=== PATIENT | female | born 1940 | race Caucasian/White ===

== ENCOUNTER 2021-02-14 11:41 | Outpatient (CLI) | payer MEDICARE, SELFPAY | END 2021-02-14 11:42 | disposition home or self-care (01) | LOC: CHSIMG 11:45 | PROVIDERS: PCP Family Medicine; Visit Provider Family Medicine | DX: I10 Essential (primary) hypertension (principal) | CPT/HCPCS: 93306 ==

== ENCOUNTER 2021-02-28 11:12 | Outpatient (CLI) | payer MEDICARE, SELFPAY ==
[2021-02-28 12:56] LABS: SARS-CoV-2 RNA PCR Negative (Negative)
== END 2021-02-28 11:13 | disposition home or self-care (01) ==
LOC: CHSLAB 11:18
PROVIDERS: PCP Family Medicine; Visit Provider Family Medicine
DX: J00 Acute nasopharyngitis [common cold] (principal); Z20.822 Contact with and (suspected) exposure to COVID-19
CPT/HCPCS: C9803; U0003; U0005

== ENCOUNTER 2021-04-25 23:20 | Emergency (ER) | payer MEDICARE, SELFPAY ==
--- NOTE | ~2021-04-25 | CT_ITS ---
EXAMINATION: CT brain wo con DATE: 04/26/2021 00:47 INDICATION: Posterior headache. Uncontrollable tremors. TECHNIQUE: Computed tomography (CT) of the head was performed without intravenous contrast. The dose- length product was 908.00 mGy-cm. Automated exposure control and iterative reconstruction technique w ere employed. COMPARISON: None FINDINGS: Generalized atrophy. There are scattered mild periventricular and subcortical white matter changes, most likely related to small vessel ischemic disease (microangiopathy). No ventriculomegaly or midline shift. Basilar cisterns are patent. Paranasal sinuses and mastoids are pneumatized. Chroni c right sphenoid sinus disease. No depressed skull fractures. No acute intracranial hemorrhage, infar ction, mass or mass effect. IMPRESSION: 1. No acute intracranial abnormality. 2: Chronic age-related findings. Reviewed, dictated and finalized at location A.
--- NOTE | ~2021-04-25 | CT_ITS ---
EXAMINATION: CT diagnostic chest wo con DATE: 04/26/2021 00:48 INDICATION: Shortness of breath TECHNIQUE: Computed tomography (CT) of the chest was performed without intravenous contrast. The dose -length product was 143.60 mGy-cm. Automated exposure control and iterative reconstruction technique were employed. COMPARISON: None FINDINGS: No significant pleural or pericardial effusion. There are calcified granulomas of the splee n. There are gallstones. There is a 4.5 cm left renal cyst. No thoracic lymphadenopathy. There is a l eft-sided chest pain or. There are patchy bilateral interstitial infiltrates with tree-in-bud configu ration, most likely infectious. No pneumothorax. No endobronchial lesions. No acute osseous abnormali ty. There is thoracic spondylosis. IMPRESSION: 1. Patchy bilateral interstitial infiltrates with areas of tree-in-bud nodularity, pneumonia versus b ronchiolitis. 2: Cholelithiasis. Reviewed, dictated and finalized at location A. IMPRESSION: 1. Patchy bilateral interstitial infiltrates with areas of tree-in-bud nodulari ty, pneumonia versus bronchiolitis. 2: Cholelithiasis.
[2021-04-25 23:20] VITALS: BP 159/86; PULSE 93; RESP 20; TEMP 36.6; O2SAT 97
--- NOTE | 2021-04-25 23:37 | ECG_ITS ---
Measurements Intervals [place] Rate: 62 P: 43 ID: [id number] QRS: 40 QRSD: 75 T: 10 QT: 422 QTc: 431 Interpretive Statements ELECTRONIC ATRIAL PACEMAKER WITH INHIBITION LOW QRS VOLTAGE IN DIFFUSE LEADS BASELINE ARTIFACT- III BORDERLINE ECG Electronically Signed On 04-26-2021 6:23:52 CDT by Raj Claros D.O.
--- NOTE | 2021-04-25 23:49 | ED.GENADULT ---
HPI - General Adult General Chief complaint: Unspecified Stated complaint: General Sickness Time Seen by Provider: 04/25/21 23:22 Source: patient, EMS and RN notes reviewed Mode of arrival: EMS Limitations: no limitations History of Present Illness complaint: Mild persistent SOB x 2 days + right leg tremors x 2 nights. Onset (ago): day(s) (2) Location: chest and lower extremity Radiation: non-radiation Severity: mild Severity scale (1-10): 5 Quality: other (Pt was pain-free in the ED) Pain Consistency: constant Relieving factors: none Exacerbating factors: none Treatments prior to arrival: none Related Data Home Medications Medication Instructions Recorded Confirmed levothyroxine 75 mcg PO DAILY 04/25/21 04/25/21 losartan 100 mg PO DAILY 04/25/21 04/25/21 Allergies Allergy/AdvReac Type Severity Reaction Status Date / Time No Known Allergies Allergy Verified 04/25/21 23:53 Review of Systems Review of Systems: All systems reviewed & are unremarkable except as noted in HPI and below Constitutional: Constitutional: Reports as per HPI and Reports no additional constitutional complaints Eyes: Eyes: Reports as per HPI and Reports no additional eye complaints ENT: Reports system reviewed and no additional complaints, except as documented and Reports as per HPI Cardiovascular: Cardiovascular: Reports as per HPI and Reports no additional cardiovascular complaints Respiratory: Respiratory: Reports as per HPI and Reports no additional respiratory complaints Gastrointestinal: Gastrointestinal: Reports as per HPI and Reports no additional gastrointestinal complaints Genitourinary: Genitourinary: Reports no additional female genitourinary complaints and Reports as per HPI Musculoskeletal: Musculoskeletal: Reports no additional musculoskeletal complaints and Reports as per HPI Integumentary/Breasts: Skin/Breast: Reports system reviewed and no additional complaints, except as docu and Reports as per HPI Neurologic: Reports system reviewed and no additional complaints, except as documented and Reports as per HPI Psychiatric: Psychiatric: Reports no additional psychiatric complaints and Reports as per HPI Endocrine: Endocrine: Reports no additional endocrine complaints and Reports as per HPI Hematologic/Lymphatic: Hematologic/Lymphatic: Reports no additional hematologic/lymphatic complaints and Reports as per HPI Allergic/Immunologic: Allergic/Immunologic: Reports no additional allergic/immunologic complaints and Reports as per HPI PMFSH Past Medical History Medical History Restless leg syndrome Exam Const: General: cooperative, healthy appearing, no acute distress and well developed Nutritional Appearance: obese Orientation/consciousness: patient oriented x3 Limitations: no limitations HENMT: Head: normal to inspection, normocephalic and atraumatic Ears: hearing grossly normal bilaterally, external ears normal and TM's normal bilaterally General nose exam: Normal external nose present and Normal nares present Face and sinus: normal facial exam Mouth: Yes Normal oral and palatal mucosa present Teeth and gingiva: dentition normal Throat: posterior oropharynx normal Eyes: General: appearance normal, both eyes and all related structures Conjunctivae: conjunctivae normal Sclera: sclerae normal Cornea: corneas normal Pupils: Equal, round and reactive pupils present EOM: EOMs intact bilaterally Neck: Neck: normal visual inspection and full ROM Chest: Chest palpation & inspection: normal inspection of the chest Resp: Effort & Inspection: normal respiratory effort Auscultation: clear to auscultation bilaterally Cardio: Jugular venous distension: no JVD Rate: regular rate Rhythm: regular rhythm Heart sounds: S1 normal heart sound present and S2 normal heart sound present GI: Inspection: normal to inspection Percussion: Yes normal to percussion
[2021-04-25] MEDS: SODIUM CHLORIDE 0.9% IV 500 ML 999 ML IV CONT (23:54)
[2021-04-25] MEDS: methylPREDNISolone SOD SUCC 125 MG VIAL IV PUSH (23:55)
[2021-04-25] MEDS: ALBUTEROL SULFATE (*SP) INHALER 2 PUFF INHALATION (23:55)
[2021-04-26 00:04] LABS: Base Excess ABG 4.9 mmol/L (0-2); Oxygen Content ABG 18.2 %vol (16.0-22.0); Oxygen Saturation ABG 93.6 % (95-97); Oxyhemoglobin 93.2 % (94-100); PCO2 ABG 40.9 mmHg (35-45); PO2 ABG 64.6 mmHg (75-85); Total Hemoglobin 13.9 g/dL; pH ABG 7.47 (7.35-7.45)
[2021-04-26 00:05] LABS: Basophils Absolute Auto 0.05 K/mm3 (0.00-0.10); Basophils Percent Auto 0.8 % (0.0-1.0); Device ROOM AIR; Eosinophils Absolute Auto 0.18 K/mm3 (0.02-0.50); Eosinophils Percent Auto 2.9 % (1.0-6.0); Hematocrit 41.3 % (35.0-42.0); Hemoglobin 13.3 g/dL (11.7-13.8); Immature Granulocyte Absolute 0.03 K/mm3 (0.00-0.00); Immature Granulocyte Percent A 0.5 % (0.0-0.0); Lymphocytes Absolute Auto 2.11 K/mm3 (1.10-4.50); Lymphocytes Percent Auto 34.5 % (18.0-42.0); Mean Corpuscular HGB Conc 32.2 g/dL (32.0-36.0); Mean Corpuscular Hemoglobin 27.8 pg (27.0-31.0); Mean Corpuscular Volume 86.4 fL (78.0-102.0); Mean Platelet Volume 9.3 fl (9.2-11.8); Modified Allen's Test Pass; Monocytes Absolute Auto 0.47 K/mm3 (0.10-0.90); Monocytes Percent Auto 7.7 % (2.0-11.0); Neutrophils Absolute Auto 3.3 K/mm3 (1.7-7.2); Neutrophils Percent Auto 53.6 % (50.0-70.0); Platelet Count Result 239 K/mm3 (150-420); Red Blood Count 4.78 M/mm3 (4.20-5.40); Red Cell Distribution Width 13.4 % (11.6-14.4); Site Drawn RIGHT RADIAL; White Blood Count 6.1 K/mm3 (4.8-10.8)
[2021-04-26 00:12] LABS: Chloride 103 mmol/L (98-108); Potassium 3.8 mmol/L (3.5-5.1); Sodium 143 mmol/L (136-145)
[2021-04-26 00:41] LABS: Appearance Urine Sl Cloudy (Clear); Bilirubin Urine Negative (Negative); Color Urine Light Yellow (Yellow); Glucose Urine UA Negative (Negative); Ketones Urine Negative (Negative); Leukocyte Esterase Ur 1+ (Negative); Nitrate Urine Negative (Negative); Protein Urine Negative (Negative); Urobilinogen Urine 0.2 mg/dL (0.2-1.0); pH Urine 7.5 (5.0-8.0)
[2021-04-26 00:44] LABS: Alanine Aminotransferase 14 U/L (14-59); Albumin Level 3.4 g/dL (3.4-5.0); Alkaline Phosphatase 54 U/L (46-116); Anion Gap 12 mmol/L (8-16); Aspartate Amino Transferase 15 U/L (15-37); Bilirubin,Total 0.5 mg/dL (0.00-1.00); Blood Urea Nitrogen 18 mg/dL (7-18); Calcium 9.1 mg/dL (8.5-10.1); Carbon Dioxide 28 mmol/L (21-32); Estimated CRCL calculation 21 ml/min; Estimated Glomerular Filt Rate 32; Glucose 98 mg/dL (70-99); Osmolality Calculated 297 mOsm/kg (285-295); Total Protein 6.7 g/dL (6.4-8.2)
[2021-04-26 00:45] VITALS: PULSE 93; RESP 20; O2SAT 98
[2021-04-26 00:47] LABS: Add Urine Microscopic? YES; Bacteria Urine Trace /hpf; Blood Urine Trace (Negative); RBC Urine 0-2 /hpf (0-2); Squamous Epithelial Cell Urine Few /hpf (Few)
[2021-04-26 00:47] LABS: Ethanol < 3 mg/dL (0-6); Lactic Acid Reflex 0.9 mmol/L (0.4-2.0); Troponin I < 4.0 ng/L (0.00-60.4)
[2021-04-26 00:49] VITALS: BP 163/87; PULSE 89; RESP 20; O2SAT 97
--- NOTE | 2021-04-26 00:53 | PC.NURSE ---
PT RETURNS FROM CT ROOM. TO BATHROOM FOR UA SPECIMEN. PT STATES HAS HAD SORE TO LABIA FOR EXTENDED PERIOD OF TIME WITH NO HEALING WITH OTC MEDICATIONS. NOTED REDNESS AND EXCORIATION TO LEFT INNER LABIA. AREA CLEANSED AND 2X2 GAUZE APPLIED BETWEEN LABIA FOLDS. ERP NOTIFIED
[2021-04-26 00:54] LABS: Amphetamine Screen Urine Negative (Negative); Barbiturate Screen Urine Negative (Negative); Benzodiazepines Screen Urine Negative (Negative); Cannabinoid Screen Urine Negative (Negative); Cocaine Screen Urine Negative (Negative); Methadone Screen Urine Negative (Negative); Opiate Screen Urine Positive (Negative); Phencyclidine Screen Urine Negative (Negative)
[2021-04-26 01:01] LABS: SARS-CoV-2 Ag Negative (Negative)
--- NOTE | 2021-04-26 01:24 | PC.NURSE ---
PT SLEEPING, NO TREMOR TO RIGHT LEG NOTED. NO RESP DISTRESS. RESP EVEN AND UNLABORED . ERP UPDATED
[2021-04-26 02:07] VITALS: BP 134/65; PULSE 68; RESP 20; TEMP 37.2; O2SAT 97
== END 2021-04-26 02:33 | disposition home or self-care (01) ==
PROVIDERS: Emergency Provider Emergency Medicine; PCP Family Medicine
DX: G25.81 Restless legs syndrome (principal); N39.0 Urinary tract infection, site not specified; J21.9 Acute bronchiolitis, unspecified; Z20.822 Contact with and (suspected) exposure to COVID-19; Z79.899 Other long term (current) drug therapy
CPT/HCPCS: 36415; 36600; 70450; 71250; 80053; 80307; 81001; 82805; 83605; 84484; 85025; 87426; 93005; 94640; 96361; 96365; 96375; 99283; 99284; A9270; C9803; J0696; J2930; J7040

== ENCOUNTER 2021-06-01 10:29 | Outpatient (CLI) | payer MEDICARE, SELFPAY ==
[2021-06-01 11:51] LABS: SARS-CoV-2 RNA PCR Negative (Negative)
== END 2021-06-01 10:30 | disposition home or self-care (01) ==
LOC: CHSLAB 10:32
PROVIDERS: PCP Family Medicine; Visit Provider Family Medicine
DX: Z20.822 Contact with and (suspected) exposure to COVID-19 (principal)
CPT/HCPCS: C9803; U0003; U0005

== ENCOUNTER 2021-08-12 08:50 | Emergency (ER) | payer MEDICARE, SELFPAY ==
--- NOTE | ~2021-08-12 | XR_ITS ---
EXAMINATION: XR chest 1V portable DATE: 08/12/2021 09:33 INDICATION: Chest pain. TECHNIQUE: A single frontal view of the chest was obtained. COMPARISON: Chest CT 04/26/2021 FINDINGS: There is no pneumonia, pleural effusion, or pneumothorax. The heart size is normal. There i s a left chest wall pacer with leads in the right atrium and right ventricle. Calcified right hilar l ymph nodes are consistent with old granulomatous disease. IMPRESSION: 1. No acute cardiopulmonary disease. Reviewed, dictated and finalized at location A. SCREEN OPERATOR
--- NOTE | ~2021-08-12 | CT_ITS ---
EXAMINATION: CTA chest PE protocol DATE: 08/12/2021 10:24 INDICATION: Shortness of breath. TECHNIQUE: Computed tomography angiography (CTA) of the chest was performed with 100 mL Omnipaque-350 intravenous contrast timed to evaluate the pulmonary arteries. Coronal maximum intensity projection 3D-reconstructions were created by the technologist. Automated exposure control and iterative reconst ruction technique were employed. The dose-length product was 220.09 mGy-cm. COMPARISON: Chest CT 04/26/2021, chest single view 08/12/2021 FINDINGS: The lungs demonstrate mild atelectasis bilaterally. A calcified right lung nodule and calci fied right hilar lymph nodes are consistent with old granulomatous disease. No pleural effusion. The heart size is normal. No pericardial effusion. There is a left chest wall pacer with leads in the rig ht atrium and right ventricle. There is no pulmonary embolus. There are gallstones in the gallbladder , which is distended. There is a 4.5 cm cyst in left kidney. There is a 1.7 cm mass in right adrenal gland measuring low-attenuation, consistent with an adenoma. There are bridging endplate osteophytes at multiple levels in the spine, consistent with diffuse idiopathic skeletal hyperostosis (DISH). IMPRESSION: 1. No pulmonary embolus. 2. Cholelithiasis. Gallbladder distention may be secondary to fasting or acute cholecystitis. Correla te with physical exam. Reviewed, dictated and finalized at location A. KER SOLES IMPRESSION: 1. No pulmonary embolus. 2. Cholelithiasis. Gallbladder distention may be secondary to fasting or acute cholecystitis. Correlate with physical exam.
[2021-08-12 09:00] VITALS: PULSE 60
--- NOTE | 2021-08-12 09:00 | ECG_ITS ---
Measurements Intervals [place] Rate: 71 P: 179 WI: 207 QRS: 38 QRSD: 76 T: 28 QT: 395 QTc: 432 Interpretive Statements ELECTRONIC ATRIAL PACEMAKER LOW QRS VOLTAGE IN PRECORDIAL LEADS NONSPECIFIC T-WAVE ABNORMALITY- DIFFUSE LEADS BORDERLINE ECG Electronically Signed On 08-13-2021 7:20:39 ASSOCIATE [employer]GER [employer] by Raj Claros D.O.
[2021-08-12 09:18] LABS: Basophils Absolute Auto 0.05 K/mm3 (0.00-0.10); Basophils Percent Auto 0.8 % (0.0-1.0); Eosinophils Absolute Auto 0.19 K/mm3 (0.02-0.50); Eosinophils Percent Auto 2.9 % (1.0-6.0); Hematocrit 42.8 % (35.0-42.0); Hemoglobin 13.2 g/dL (11.7-13.8); Immature Granulocyte Absolute 0.04 K/mm3 (0.00-0.00); Immature Granulocyte Percent A 0.6 % (0.0-0.0); Lymphocytes Absolute Auto 1.49 K/mm3 (1.10-4.50); Lymphocytes Percent Auto 22.4 % (18.0-42.0); Mean Corpuscular HGB Conc 30.8 g/dL (32.0-36.0); Mean Corpuscular Hemoglobin 28.1 pg (27.0-31.0); Mean Corpuscular Volume 91.1 fL (78.0-102.0); Mean Platelet Volume 9.7 fl (9.2-11.8); Monocytes Absolute Auto 0.51 K/mm3 (0.10-0.90); Monocytes Percent Auto 7.7 % (2.0-11.0); Neutrophils Absolute Auto 4.4 K/mm3 (1.7-7.2); Neutrophils Percent Auto 65.6 % (50.0-70.0); Platelet Count Result 240 K/mm3 (150-420); Red Cell Distribution Width 13.3 % (11.6-14.4); White Blood Count 6.6 K/mm3 (4.8-10.8)
[2021-08-12] MEDS: MAG HYDROX/ALUMINUM HYD/SIMETH 30 ML, PHENobarb/HYOSCY/ATROPINE/SCOP 32.4 MG, LIDOCAINE... PO (09:24)
[2021-08-12 09:28] VITALS: BP 152/66; PULSE 67; RESP 20; TEMP 36.7; O2SAT 99
[2021-08-12 09:38] LABS: INR 0.9; Partial Thromboplastin Time 27.8 SEC (23.90-30.70); Prothrombin Time 10.1 Seconds (9.50-12.10)
[2021-08-12 09:40] LABS: Alanine Aminotransferase 12 U/L (14-59); Albumin Level 3.3 g/dL (3.4-5.0); Alkaline Phosphatase 61 U/L (46-116); Anion Gap 8 mmol/L (8-16); Aspartate Amino Transferase 10 U/L (15-37); Bilirubin,Total 0.4 mg/dL (0.00-1.00); Blood Urea Nitrogen 14 mg/dL (7-18); Calcium 8.6 mg/dL (8.5-10.1); Carbon Dioxide 31 mmol/L (21-32); Chloride 103 mmol/L (98-108); Estimated CRCL calculation 23 ml/min; Estimated Glomerular Filt Rate 37; Glucose 121 mg/dL (70-99); Lipase 172 U/L (73-393); NT Pro B Type Natriuretic Pept 162 pg/mL (0-450); Osmolality Calculated 295 mOsm/kg (285-295); Potassium 3.7 mmol/L (3.5-5.1); Sodium 142 mmol/L (136-145); Total Protein 6.6 g/dL (6.4-8.2); Troponin I 4.9 ng/L (0.00-60.4)
[2021-08-12 09:41] LABS: D Dimer 0.94 mg/L (0.19-0.50)
[2021-08-12] MEDS: MORPHINE SULFATE (*CRX) 4 MG/ML INJ IV PUSH (09:45)
--- NOTE | 2021-08-12 10:43 | ED.CHESTPAIN ---
HPI - Chest Pain General Chief Complaint: Chest Pain Stated Complaint: chest pain Source: patient Mode of arrival: ambulatory Limitations: no limitations History of Present Illness HPI narrative: this is 81-year-old female that presents after she woke up with some chest discomfort reproducible with palpation with discomfort in the epigastric region with no nausea vomiting does have some mild shortness of breath, does have a history of hypertension with no nausea vomiting no abdominal pain no flank pain does have some dizziness with no headaches no blurry vision no dysuria. MD complaint: chest discomfort Onset (ago): hour(s) Timing of current episode: episodic Onset: awoke with symptoms Pain location: epigastric Pain radiation: none Severity: moderate Pain scale (0-10): 8 Quality: aching Related Data Home Medications Medication Instructions Recorded Confirmed levothyroxine 75 mcg PO DAILY 04/25/21 08/12/21 losartan 100 mg PO DAILY 04/25/21 08/12/21 calcium 2,400 mg PO DAILY 08/12/21 08/12/21 Allergies Allergy/AdvReac Type Severity Reaction Status Date / Time No Known Allergies Allergy Verified 08/12/21 09:47 Review of Systems Review of Systems: All systems reviewed & are unremarkable except as noted in HPI and below PMFSH Past Medical History Medical History Restless leg syndrome Exam Const: General: cooperative, healthy appearing, comfortable, no acute distress, well developed, alert and awake HENMT: Head: normal to inspection Ears: hearing grossly normal bilaterally General nose exam: Normal external nose present Face and sinus: normal facial exam Teeth and gingiva: dentition normal Eyes: General: appearance normal, both eyes and all related structures Chest: Chest palpation & inspection: normal inspection of the chest and normal palpation of entire chest wall ( Tenderness with chest palpation) Resp: Effort & Inspection: normal respiratory effort and able to speak in complete sentences Auscultation: clear to auscultation bilaterally Cardio: Jugular venous distension: no JVD Palpation: normal PMI Rate: regular rate Rhythm: regular rhythm GI: Inspection: normal to inspection Percussion: Yes normal to percussion Back/Spine/Pelvis: Back: no CVA tenderness Skin: General skin exam: normal color and no rashes or lesions noted Neuro: General: oriented to person, oriented to place and oriented to time Course Course Emergency Course: patient with a history of a paced her currently EKG reviewed shows no ST or T changes heart rate of 71, labs reviewed did showed elevated D-dimer which prompted CTA of the lungs which was normal, patient did receive some morphine with some pain relief. Labs were reviewed with patient. Vital Signs Vital signs: Vital Signs Pulse Rate 60 08/12/21 09:00 Temperature 36.7 C 08/12/21 09:28 Pulse Rate 67 08/12/21 09:28 Respiratory Rate 20 08/12/21 09:28 Blood Pressure 152/66 H 08/12/21 09:28 Pulse Oximetry 99 08/12/21 09:28 MDM - Chest Pain Lab Data Result diagrams: 08/12/21 09:13 08/12/21 09:13 Labs: Lab Results 08/12/21 08/12/21 08/12/21 Range/Units 09: 09:13 09:13 WBC 6.6 (4.8-10.8) K/mm3 RBC 4.70 (4.20-5.40) M/mm3 Hgb 13.2 (11.7-13.8) g/dL Hct 42.8 H (35.0-42.0) % MCV 91.1 (78.0-102.0) fL MCH 28.1 (27.0-31.0) pg MCHC 30.8 L (32.0-36.0) g/dL RDW 13.3 (11.6-14.4) % Plt Count 240 (150-420) K/mm3 MPV 9.7 (9.2-11.8) fl Immature Gran % (Auto) 0.6 H (0.0-0.0) % Neut % (Auto) 65.6 (50.0-70.0) % Lymph % (Auto) 22.4 (18.0-42.0) % Becker % (Auto) 7.7 (2.0-11.0) % Eos % (Auto) 2.9 (1.0-6.0) % Baso % (Auto) 0.8 (0.0-1.0) % Lymph # (Auto) 1.49 (1.10-4.50) K/mm3 Becker # (Auto) 0.51 (0.10-0.90) K/mm3 Eos # (Auto) 0.19 (0.02-0.50) K/mm3 Baso # (Auto) 0.05 (0.00-
[2021-08-12 11:20] VITALS: BP 130/59; PULSE 67; RESP 20; TEMP 36.7; O2SAT 100
== END 2021-08-12 11:26 | disposition home or self-care (01) ==
PROVIDERS: Emergency Provider Emergency Medicine; PCP Family Medicine
DX: R07.89 Other chest pain (principal); R06.02 Shortness of breath; G25.81 Restless legs syndrome
CPT/HCPCS: 36415; 71045; 71275; 80053; 83690; 83880; 84484; 85025; 85380; 85610; 85730; 93005; 96374; 99283; 99284; A9270; J2270; Q9967

== ENCOUNTER 2021-08-18 21:42 | Emergency (ER) | payer MEDICARE, SELFPAY ==
--- NOTE | ~2021-08-18 | CT_ITS ---
EXAMINATION: CT abdomen pelvis w con EXAM DATE: 08/19/2021 01:47 INDICATION: Epigastric Pain for 15 hours. TECHNIQUE: Spiral CT of the abdomen and pelvis was performed following intravenous injection of 100 m L Omnipaque 350. Axial, coronal and sagittal images of the abdomen and pelvis were reviewed. The do se-length product (DLP) for this examination was 660.81 mGy-cm. The exposure was tailored according to patient size (auto mA exposure control), and iterative reconstruction (ASIR) was used as additiona l dose reduction technique. There is no prior study for comparison. FINDINGS: There is right adrenal gland lesion measuring 1.7 cm, statistically most likely adenoma. T he liver, spleen, left adrenal gland and pancreas are otherwise unremarkable. There is moderately di stended gallbladder with several sizable peripherally calcified gallstones, but no adjacent inflammat ion. Common bile duct is normal in size. [place] and splenic veins are patent. Kidneys enhance symme trically. There is no hydronephrosis. There is a 4.5 cm exophytic left renal cyst, smaller cysts in the kidneys bilaterally. The uterus is not identified and has likely been surgically resected. The bladder is unremarkable. There is no retroperitoneal or pelvic lymphadenopathy. There is mild to m oderate scattered arteriosclerotic disease. The appendix is not positively visualized. There is no pericecal inflammatory change to suggest appe ndicitis. Ingested tablet in the stomach. There is mild sigmoid colonic diverticulosis. There is n o adjacent inflammatory change to suggest diverticulitis. There is expected amount of colonic stool. No free intraperitoneal gas. Cardiac pacemaker/AICD leads. The lung bases are unremarkable. Th ere are no osteoblastic or osteolytic lesions identified. IMPRESSION: 1. Cholelithiasis. Moderately distended but otherwise unremarkable gallbladder. 2. Right adrenal gland lesion statistically most likely adenoma. Abdomen CT without contrast might b e able to confirm if no prior study available for comparison. 3. Mild sigmoid diverticulosis. Reviewed, dictated and finalized at location A. ANALYST IMPRESSION: 1. Cholelithiasis. Moderately distended but otherwise unremarkable gallbladder . 2. Right adrenal gland lesion statistically most likely adenoma. Abdomen CT wi thout contrast might be able to confirm if no prior study available for compari son. 3. Mild sigmoid diverticulosis.
[2021-08-18 21:59] VITALS: BP 150/84; PULSE 65; RESP 22; TEMP 36.4; O2SAT 99
--- NOTE | 2021-08-18 22:02 | ED.ABDPAIN ---
HPI - Abdominal Pain General Chief Complaint: Abdominal Pain Stated Complaint: stomach pain Source: patient and RN notes reviewed Mode of arrival: ambulatory Limitations: no limitations History of Present Illness HPI narrative: patient has similar episode 6 days ago with pain in her epigastric area. At that time she was diagnosed with atypical chest pain, CTA for possible PE was negative but did show evidence of gallstones in gallbladder. She says that her pain recurred which started at 6:00 a.m. on 07/18/2021. The pain has been severe and intermittent throughout the day. She states that she just could not stand it anymore needed a see if she could get something done about it. MD elicited complaint: abdominal pain Pertinent past history: none Onset (ago): hour(s) (16) Pain Consistency: constant Location: epigastric Severity: severe Quality: cramping, stabbing and sharp Radiation: none Migration to: no migration Exacerbating factors: nothing Relieving factors: nothing Associated symptoms: denies other symptoms Related Data Home Medications Medication Instructions Recorded Confirmed levothyroxine 75 mcg PO DAILY 04/25/21 08/18/21 losartan 100 mg PO DAILY 04/25/21 08/18/21 calcium 2,400 mg PO DAILY 08/12/21 08/18/21 Allergies Allergy/AdvReac Type Severity Reaction Status Date / Time No Known Allergies Allergy Verified 08/12/21 09:47 Review of Systems Constitutional: Constitutional: Denies chills and Denies fever(s) Cardiovascular: Cardiovascular: Denies chest pain Respiratory: Respiratory: Denies cough and Denies dyspnea Gastrointestinal: Gastrointestinal: Denies melena, Denies hematochezia, Denies constipation, Denies diarrhea, Denies nausea and Denies vomiting Genitourinary: Genitourinary: Denies hematuria, Denies nocturia, Denies dysuria, Denies flank pain and Denies urinary incontinence [facility] Past Medical History Medical History (Updated 08/19/21 @ 03:00 by Bacilio Tafoya MD) Hypertension 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 Restless leg syndrome Surgical History Surgical History (Updated 08/18/21 @ 22:09 by Bacilio Tafoya MD) History of hysterectomy History of thyroid surgery Exam Const: General: healthy appearing, no acute distress and alert Nutritional Appearance: well nourished Orientation/consciousness: patient oriented x3 HENMT: Head: normal to inspection Ears: external ears normal Face and sinus: normal facial exam Eyes: Conjunctivae: conjunctivae normal Pupils: Equal, round and reactive pupils present EOM: EOMs intact bilaterally Neck: Neck: normal visual inspection Resp: Effort & Inspection: normal respiratory effort Auscultation: clear to auscultation bilaterally Cardio: Rate: regular rate Rhythm: regular rhythm GI: GI Palp: Yes Soft to palpation, Yes Tenderness to palpation present (GI) (severe epigastric), Yes Guarding due to palpation present (GI) (severe) and No Rebound tenderness present Auscultation: Hypoactive bowel sounds present : General: Yes no CVA tenderness Back/Spine/Pelvis: Cervical Spine: cervical ROM normal Thoracic/Lumbar Spine: thoraco-lumbar ROM normal Skin: General skin exam: normal color Rashes: no rashes Neuro: General: patient oriented x3, moves all extremities, no meningeal signs and no focal motor deficits Speech: normal speech Gait exam (Neuro): Normal gait present Extrem: General: normal to inspection and no clubbing, cyanosis or edema Psych: Appearance: grossly normal and well kempt Mental Status: mental status grossly normal Affect: normal affect Attitude: cooperative Thought content: Yes Normal thought content present Course Course Emergency Course: patient asked to be transferred to [facility] further evaluation and surgical consult Vital Signs Vital signs: Vital Signs Temperature 36.4 C 08/18/21 21:59 Pulse Rate 65 08/18/21 21:59 Respiratory Rate 22 H
[2021-08-18 22:34] LABS: Basophils Absolute Auto 0.04 K/mm3 (0.00-0.10); Basophils Percent Auto 0.5 % (0.0-1.0); Eosinophils Absolute Auto 0.16 K/mm3 (0.02-0.50); Eosinophils Percent Auto 2.1 % (1.0-6.0); Hematocrit 43.4 % (35.0-42.0); Hemoglobin 13.8 g/dL (11.7-13.8); Immature Granulocyte Absolute 0.02 K/mm3 (0.00-0.00); Immature Granulocyte Percent A 0.3 % (0.0-0.0); Lymphocytes Absolute Auto 1.72 K/mm3 (1.10-4.50); Lymphocytes Percent Auto 22.6 % (18.0-42.0); Mean Corpuscular HGB Conc 31.8 g/dL (32.0-36.0); Mean Corpuscular Hemoglobin 28.5 pg (27.0-31.0); Mean Corpuscular Volume 89.7 fL (78.0-102.0); Mean Platelet Volume 9.5 fl (9.2-11.8); Monocytes Absolute Auto 0.52 K/mm3 (0.10-0.90); Monocytes Percent Auto 6.8 % (2.0-11.0); Neutrophils Absolute Auto 5.2 K/mm3 (1.7-7.2); Neutrophils Percent Auto 67.7 % (50.0-70.0); Platelet Count Result 244 K/mm3 (150-420); Red Blood Count 4.84 M/mm3 (4.20-5.40); Red Cell Distribution Width 13.1 % (11.6-14.4); White Blood Count 7.6 K/mm3 (4.8-10.8)
[2021-08-18 22:49] LABS: Alanine Aminotransferase 15 U/L (14-59); Albumin Level 3.5 g/dL (3.4-5.0); Alkaline Phosphatase 61 U/L (46-116); Anion Gap 9 mmol/L (8-16); Aspartate Amino Transferase 16 U/L (15-37); Bilirubin,Total 0.5 mg/dL (0.00-1.00); Blood Urea Nitrogen 19 mg/dL (7-18); Calcium 9.1 mg/dL (8.5-10.1); Carbon Dioxide 30 mmol/L (21-32); Chloride 102 mmol/L (98-108); Estimated CRCL calculation 18 ml/min; Estimated Glomerular Filt Rate 27; Glucose 116 mg/dL (70-99); Magnesium 1.7 mg/dL (1.8-2.4); Osmolality Calculated 295 mOsm/kg (285-295); Potassium 3.8 mmol/L (3.5-5.1); Sodium 141 mmol/L (136-145)
[2021-08-18] MEDS: fentaNYL CITRATE INJ (*CRX) 100 MCG/2 ML VIAL 50 MCG IV PUSH (22:52)
[2021-08-18 22:53] LABS: Lactic Acid Reflex 1.2 mmol/L (0.4-2.0)
[2021-08-18 23:01] LABS: Amylase 103 U/L (25-115); Lipase 278 U/L (73-393)
[2021-08-18] MEDS: SODIUM CHLORIDE 0.9% IV 1,000 ML 999 ML IV CONT (23:10)
--- NOTE | 2021-08-18 23:15 | PC.NURSE ---
Patient aware of UA needed. states that she is unable to at this time.
[2021-08-18 23:47] VITALS: BP 162/49; PULSE 64; RESP 18; O2SAT 99
[2021-08-18 23:50] LABS: Add Urine Microscopic? NO; Appearance Urine Clear (Clear); Bilirubin Urine Negative (Negative); Blood Urine Negative (Negative); Color Urine Light Yellow (Yellow); Glucose Urine UA Negative (Negative); Ketones Urine Negative (Negative); Leukocyte Esterase Ur Negative LEU/UL (Negative); Nitrate Urine Negative (Negative); Protein Urine Negative (Negative); Urobilinogen Urine 0.2 mg/dL (0.2-1.0); pH Urine 8.5 (5.0-8.0)
[2021-08-19] MEDS: HYDROmorphone HCL INJ (*CRX) 2 MG/ML VIAL 1 MG IV PUSH ×2 (00:36→04:18)
[2021-08-19 01:06] LABS: Anion Gap 8 mmol/L (8-16); Blood Urea Nitrogen 18 mg/dL (7-18); Calcium 8.4 mg/dL (8.5-10.1); Carbon Dioxide 28 mmol/L (21-32); Chloride 104 mmol/L (98-108); Estimated CRCL calculation 20 ml/min; Estimated Glomerular Filt Rate 31; Glucose 111 mg/dL (70-99); Osmolality Calculated 292 mOsm/kg (285-295); Potassium 3.9 mmol/L (3.5-5.1); Sodium 140 mmol/L (136-145)
[2021-08-19 01:11] VITALS: BP 117/68; PULSE 67; RESP 18; TEMP 36.9; O2SAT 90
--- NOTE | 2021-08-19 01:12 | PC.NURSE ---
Patient updated on plan of care to wait for GFR redraw to result before patient can be transported to CT. Family verbalized understanding. Patient complaining of pain and given medication. Will reevaluate in 30 minutes.
--- NOTE | 2021-08-19 01:30 | PC.NURSE ---
Patient able to sit comfortably in wheelchair to be transported for CT scan at this time.
--- NOTE | 2021-08-19 02:16 | PC.NURSE ---
Per patient request, [facility] called for possible transfer for surgical consult for gallstones and epigastric pain
--- NOTE | 2021-08-19 03:39 | PC.NURSE ---
rapid covid swab sent to lab
[2021-08-19] MEDS: DEXTROSE 5%/0.45% SOD CHL 1,000 ML 100 ML IV CONT (03:41)
[2021-08-19 03:43] VITALS: BP 137/70; PULSE 98; RESP 18; TEMP 36.3; O2SAT 98
[2021-08-19 04:04] LABS: SARS-CoV-2 Ag Negative (Negative)
--- NOTE | 2021-08-19 04:10 | PC.NURSE ---
Report given to BRADY Haile at [facility] in [place], [place]
[2021-08-19 04:11] VITALS: BP 120/57; PULSE 66; RESP 14; TEMP 36.8; O2SAT 98
[2021-08-19 05:27] VITALS: BP 101/64; PULSE 88; RESP 16; TEMP 36.9; O2SAT 100
== END 2021-08-19 05:28 | disposition short-term general hospital (02) ==
PROVIDERS: Emergency Provider Emergency Medicine; PCP Family Medicine
DX: R10.13 Epigastric pain (principal); K80.20 Calculus of gallbladder without cholecystitis without obstruction; Z20.822 Contact with and (suspected) exposure to COVID-19
CPT/HCPCS: 36415; 74177; 80048; 80053; 81003; 82150; 83605; 83690; 83735; 85025; 86140; 87426; 96361; 96374; 96375; 96376; 99284; 99285; C9803; J1170; J3010; J7030; Q9967

== ENCOUNTER 2022-01-22 09:15 | Outpatient (CLI) | payer MEDICARE, SELFPAY ==
[2022-01-22 10:23] LABS: Alanine Aminotransferase 15 U/L (14-59); Aspartate Amino Transferase 24 U/L (15-37); Cholesterol 169 mg/dL (0-200); HDL Direct 78 mg/dL (40-60); LDL Cholesterol Calculated 79 mg/dL (<130); Triglycerides 60 mg/dL (0-150)
== END 2022-01-22 09:16 | disposition home or self-care (01) ==
LOC: CHSLAB 09:18
PROVIDERS: PCP Family Medicine; Visit Provider Specialist
DX: E78.2 Mixed hyperlipidemia (principal)
CPT/HCPCS: 36415; 80061; 84450; 84460

== ENCOUNTER 2023-09-09 09:23 | Emergency (ER) | payer MEDICARE, SELFPAY ==
[2023-09-09] VITALS (14 sets, daily range): BP systolic 145–182; BP diastolic 63–86; PULSE 59–91; RESP 16–19; TEMP 36.2–36.6; O2SAT 94–99
--- NOTE | ~2023-09-09 | CT_ITS ---
EXAMINATION: CT brain wo con INDICATION: Dizziness COMPARISON: 04/26/2021 TECHNIQUE: Standard unenhanced head CT. The dose-length product (DLP) was 605.33 mGy-cm. The mA was a djusted according to patient size. Iterative reconstruction technique was employed. FINDINGS: No acute intraparenchymal hemorrhage. No evidence of mass lesion. No evidence of acute infa rction. There is mild periventricular and subcortical hypodensity probably related to small vessel is chemic disease. There is mild prominence of the sulci and ventricles related to cerebral atrophy. Int racranial calcified cerebral atherosclerosis is noted. No extra-axial collections. No mass effect or midline shift. Changes in the globes are likely from ocular lens surgery. There is near complete opac ification of the left sphenoid sinus. There is mild mucosal thickening of the remaining paranasal sin uses. IMPRESSION: 1. No acute intracranial abnormality. 2. Age related findings. Reviewed, dictated and finalized at location B. ERED METAL SUPERVISOR
--- NOTE | 2023-09-09 09:34 | ECG_ITS ---
Measurements Intervals [place] Rate: 68 P: 93 RI: 241 QRS: 34 QRSD: 73 T: 26 QT: 385 QTc: 412 Interpretive Statements ELECTRONIC ATRIAL PACEMAKER NONSPECIFIC ST & T-WAVE ABNORMALITY ABNORMAL ECG COMPARED TO ECG 08/12/2021 09:04:07 T-WAVE ABNORMALITY NOW PRESENT Electronically Signed On 09-09-2023 13:30:15 MANAGER [employer]AMP by Jp Angel M.D.
[2023-09-09 09:49] LABS: Basophils Absolute Auto 0.06 K/mm3 (0.00-0.10); Basophils Percent Auto 1.1 % (0.0-1.0); Eosinophils Absolute Auto 0.14 K/mm3 (0.02-0.50); Eosinophils Percent Auto 2.6 % (1.0-6.0); Hematocrit 44.2 % (35.0-42.0); Hemoglobin 13.9 g/dL (11.7-13.8); Immature Granulocyte Absolute 0.03 K/mm3 (0.00-0.00); Immature Granulocyte Percent A 0.6 % (0.0-0.0); Lymphocytes Absolute Auto 1.47 K/mm3 (1.10-4.50); Lymphocytes Percent Auto 27.1 % (18.0-42.0); Mean Corpuscular HGB Conc 31.4 g/dL (32.0-36.0); Mean Corpuscular Hemoglobin 28.1 pg (27.0-31.0); Mean Corpuscular Volume 89.3 fL (78.0-102.0); Mean Platelet Volume 8.9 fl (9.2-11.8); Monocytes Absolute Auto 0.43 K/mm3 (0.10-0.90); Monocytes Percent Auto 7.9 % (2.0-11.0); Neutrophils Absolute Auto 3.3 K/mm3 (1.7-7.2); Neutrophils Percent Auto 60.7 % (50.0-70.0); Platelet Count Result 230 K/mm3 (150-420); Red Blood Count 4.95 M/mm3 (4.20-5.40); Red Cell Distribution Width 14.5 % (11.6-14.4); White Blood Count 5.4 K/mm3 (4.8-10.8)
[2023-09-09] MEDS: ACETAMINOPHEN 500 MG TABLET 1000 MG PO (09:57)
[2023-09-09 10:08] LABS: Appearance Urine Clear (Clear); Bilirubin Urine Negative (Negative); Blood Urine Trace-Intact (Negative); Color Urine Light Yellow (Yellow); Glucose Urine UA Negative (Negative); Ketones Urine Negative (Negative); Leukocyte Esterase Ur Negative LEU/UL (Negative); Nitrate Urine Negative (Negative); Protein Urine Negative (Negative); Urobilinogen Urine 0.2 mg/dL (0.2-1.0)
[2023-09-09 10:12] LABS: Add Urine Microscopic? YES; RBC Urine 0-2 /hpf (0-2); Squamous Epithelial Cell Urine Few /hpf (Few); WBC Urine None seen /hpf (0-3)
[2023-09-09 10:13] LABS: Bacteria Urine Trace /hpf
[2023-09-09 10:15] LABS: Alanine Aminotransferase 21 U/L (14-59); Albumin Level 3.8 g/dL (3.4-5.0); Alkaline Phosphatase 61 U/L (46-116); Anion Gap 4 mmol/L (8-16); Aspartate Amino Transferase 21 U/L (15-37); Bilirubin,Total 0.6 mg/dL (0.00-1.00); Blood Urea Nitrogen 11 mg/dL (7-18); Calcium 6.7 mg/dL (8.5-10.1); Carbon Dioxide 33 mmol/L (21-32); Chloride 101 mmol/L (98-108); Estimated CRCL calculation 23 ml/min; Estimated Glomerular Filt Rate 36; Glucose 98 mg/dL (70-99); Osmolality Calculated 285 mOsm/kg (285-295); Potassium 3.9 mmol/L (3.5-5.1); Sodium 138 mmol/L (136-145); Total Protein 7.3 g/dL (6.4-8.2)
[2023-09-09 10:16] LABS: Thyroid Stimulating Hormone Reflex 0.95 u/IU/mL (0.36-3.74)
--- NOTE | 2023-09-09 10:52 | ED.GENADULT ---
HPI - General Adult General Chief complaint: Dizziness Stated complaint: head pressure, dizzy Time Seen by Provider: 09/09/23 09:34 History of Present Illness HPI narrative: 83yo woman with pacemaker and on synthroid, no other medical problems, presents with a feeling of dizziness and facial pressure for the past one week, constant. Has a pins and needles sensation around the mouth, both sides of face. No weakness. No headache. The dizziness is like lightheaded, no room spinning. No ear pain or fullness. No sinus congestion or facial pain. Saw her PMD a week ago who wanted her to come to ED to get tests, which she is now doing. Related Data Home Medications Medication Instructions Recorded Confirmed levothyroxine 75 mcg tablet 75 mcg PO DAILY 04/25/21 09/09/23 Allergies Allergy/AdvReac Type Severity Reaction Status Date / Time No Known Allergies Allergy Verified 09/09/23 09:32 Review of Systems Review of Systems: All systems reviewed & are unremarkable except as noted in HPI and below Constitutional: Constitutional: Denies chills and Denies fever(s) ENT: Denies dysphagia Cardiovascular: Cardiovascular: Denies chest pain Respiratory: Respiratory: Denies dyspnea Gastrointestinal: Gastrointestinal: Denies abdominal pain Musculoskeletal: Musculoskeletal: Denies myalgias Neurologic: Denies vertigo and Denies focal weakness PMFSH Past Medical History Medical History Hypertension 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 Restless leg syndrome Surgical History Surgical History History of hysterectomy History of thyroid surgery Exam Const: General: healthy appearing Nutritional Appearance: well nourished Orientation/consciousness: patient oriented x3 HENMT: Head: normal to inspection Ears: external ears normal, TM's normal bilaterally and EAC's normal Eyes: Conjunctivae: conjunctivae normal EOM: EOMs intact bilaterally Resp: Effort & Inspection: normal respiratory effort Auscultation: not clear to auscultation bilaterally Cardio: Rate: regular rate Rhythm: regular rhythm Heart sounds: no murmurs GI: Inspection: non-distended Skin: General skin exam: normal color, no jaundice and no pallor Neuro: General: patient oriented x3, moves all extremities, no focal motor deficits and CN's II-XI intact bilaterally Gait exam (Neuro): Normal gait present Course Vital Signs Vital signs: Vital Signs Temperature 36.2 C L 09/09/23 09:23 Pulse Rate 91 09/09/23 09:23 Respiratory Rate 18 09/09/23 09:23 Blood Pressure 182/86 H 09/09/23 09:23 Pulse Oximetry 99 09/09/23 09:23 Oxygen Delivery Room Air 09/09/23 09:23 Temperature 36.2 C L 09/09/23 09:23 Pulse Rate 59 L 09/09/23 10:16 Respiratory Rate 16 09/09/23 10:16 Blood Pressure 170/71 H 09/09/23 10:16 Pulse Oximetry 98 09/09/23 10:30 Oxygen Delivery Room Air 09/09/23 09:37 Medical Decision Making MDM Narrative Medical decision making narrative: feeling of facial, aural, and cranial fullness. No neurologic deficits, headache, or pain. DDx dysrhythmia, pacer failure, sinusitis, middle ear effusion, stroke (no focal deficit on exam), intracranial mass, headache, migraine, anxiety attack. Vital Signs Vital Signs: Vital Signs Temperature 36.2 C L 09/09/23 09:23 Pulse Rate 91 09/09/23 09:23 Respiratory Rate 18 09/09/23 09:23 Blood Pressure 182/86 H 09/09/23 09:23 Pulse Oximetry 99 09/09/23 09:23 Oxygen Delivery Room Air 09/09/23 09:23 Temperature 36.2 C L 09/09/23 09:23 Pulse Rate 59 L 09/09/23 10:16 Respiratory Rate 16 09/09/23 10:16 Blood Pressure 170/71 H 09/09/23 10:16 Pulse Oximetry 98 09/09/23 10:30 Oxygen Delivery Room Air 09/09/23 09:37 Lab Data 09/09/23 09:45 09/09/23 09:45 Labs
== END 2023-09-09 11:05 | disposition home or self-care (01) ==
PROVIDERS: Emergency Provider Emergency Medicine; PCP Family Medicine
DX: R51.9 Headache, unspecified (principal); I10 Essential (primary) hypertension; E03.9 Hypothyroidism, unspecified; Z79.899 Other long term (current) drug therapy
CPT/HCPCS: 36415; 70450; 80053; 81001; 84443; 85025; 93005; 99284

== ENCOUNTER 2023-09-09 17:23 | Emergency (ER) | payer MEDICARE, SELFPAY ==
--- NOTE | ~2023-09-09 | XR_ITS ---
EXAMINATION: XR chest 2V DATE: 09/09/2023 18:08 INDICATION: Dyspnea TECHNIQUE: PA and lateral views of the chest were obtained. COMPARISON: Chest radiograph and CT dated 08/12/2023 FINDINGS: The lungs remain clear with no focal airspace opacities, pulmonary edema, pleural effusion or pneumot horax. The cardiomediastinal silhouette is normal. Dual lead pacemaker seen with leads projecting ove r the expected locations of the right atrium and right ventricle. Cholecystectomy clips in right uppe r quadrant. Mild thoracic spondylosis with chronic mild anterior wedging of a few mid and lower thora cic vertebral bodies. IMPRESSION: 1. No acute cardiopulmonary disease. Reviewed, dictated and finalized at location A. L FRONT DESK AGENT
[2023-09-09 17:36] VITALS: BP 173/75; PULSE 68; RESP 19; TEMP 36.6; O2SAT 95
--- NOTE | 2023-09-09 17:38 | ECG_ITS ---
Measurements Intervals [place] Rate: 63 P: 60 SC: 194 QRS: 36 QRSD: 70 T: -9 QT: 385 QTc: 395 Interpretive Statements SINUS RHYTHM LOW QRS VOLTAGE IN PRECORDIAL LEADS [QRS DEFLECTION < 1.0 mV IN CHEST LEADS] NONSPECIFIC T-WAVE ABNORMALITY ABNORMAL ECG COMPARED TO ECG 09/09/2023 09:46:25 NO SIGNIFICANT CHANGES Electronically Signed On 09-10-2023 16:51:56 LINE SERVER by Jp Angel M.D.
[2023-09-09 17:58] LABS: Basophils Absolute Auto 0.1 K/mm3 (0.0-0.1); Basophils Percent Auto 0.9 % (0.2-1.2); Eosinophils Absolute Auto 0.2 K/mm3 (0-0.3); Eosinophils Percent Auto 2.8 % (0-4.4); Hematocrit 44.7 % (37.0-47.0); Immature Granulocyte Absolute 0.03 K/mm3 (0.00-0.031); Immature Granulocyte Percent A 0.5 % (0-0.5); Immature Platelet Fraction Pct 2.8 % (0.9-11.2); Lymphocytes Absolute Auto 1.84 K/mm3 (0.9-3.2); Lymphocytes Percent Auto 32.7 % (18.3-44.2); Mean Corpuscular HGB Conc 31.3 g/dl (32-36); Mean Corpuscular Hemoglobin 27.5 pg (26-34); Mean Corpuscular Volume 87.6 fl (80-100); Mean Platelet Volume 9.3 fl (7.4-10.4); Monocytes Absolute Auto 0.5 K/mm3 (0.1-0.6); Monocytes Percent Auto 8.5 % (2.6-8.5); Neutrophils Absolute Auto 3.1 K/mm3 (1.3-6.7); Neutrophils Percent Auto 54.6 % (45.5-73.1); Platelet Count Result 223 k/mm3 (150-375); Red Cell Distribution Width 14.6 % (11.5-14.5); White Blood Count 5.6 K/mm3 (4.5-10.0)
[2023-09-09 18:56] LABS: Alanine Aminotransferase 15 U/L (6-35); Albumin Level 4.5 g/dL (3.5-5.1); Alkaline Phosphatase 69 U/L (38-126); Anion Gap 5 mmol/L (8-16); Aspartate Amino Transferase 29 U/L (14-36); Bilirubin,Total 0.8 mg/dL (0.2-1.3); Blood Urea Nitrogen 11 mg/dL (7-17); Calcium 6.4 mg/dL (8.4-10.2); Carbon Dioxide 28 mmol/L (22-30); Chloride 105 mmol/L (98-107); Estimated CRCL calculation 24 ml/min; Estimated Glomerular Filt Rate 39; Glucose 94 mg/dL (65-110); Sodium 138 mmol/L (137-145)
--- NOTE | 2023-09-09 21:13 | PC.NURSE ---
Pt called for room, no answer
== END 2023-09-09 21:13 | disposition left against medical advice (07) ==
LOC: ANHED 21:16
PROVIDERS: Emergency Provider Emergency Medicine; PCP Family Medicine
DX: R51.9 Headache, unspecified (principal)
CPT/HCPCS: 36415; 71046; 80053; 85025; 85055; 93005; 99199

== ENCOUNTER 2023-09-16 08:26 | Emergency (ER) | payer MEDICARE, SELFPAY ==
[2023-09-16] VITALS (29 sets, daily range): BP systolic 99–177; BP diastolic 55–135; PULSE 60–69; RESP 17–18; TEMP 36.4–36.6; O2SAT 94–100
--- NOTE | 2023-09-16 08:38 | PC.NURSE ---
patient states she has not taken any medication for blood pressure today, only her thyroid medication, ERP is aware.
--- NOTE | 2023-09-16 08:39 | PC.NURSE ---
Rn attemtped to get patient to change into gown, patient refused.
[2023-09-16] MEDS: CALCIUM GLUC 2,000 MG/NS 100ML 2,000 MG/100 ML BAG 100 MG IVPB (08:48)
[2023-09-16] MEDS: ORPHENADRINE CITRATE 30 MG/ML 2 ML VIAL 60 MG IV PUSH (08:49)
[2023-09-16] MEDS: SODIUM CHLORIDE 0.9% IV 1,000 ML 999 ML IV CONT (08:49)
[2023-09-16] MEDS: LORazepam INJ (*CRX) 2 MG/ML VIAL 1 MG IV PUSH (08:55)
[2023-09-16 08:59] LABS: Basophils Absolute Auto 0.06 K/mm3 (0.00-0.10); Basophils Percent Auto 1.3 % (0.0-1.0); Eosinophils Absolute Auto 0.07 K/mm3 (0.02-0.50); Eosinophils Percent Auto 1.5 % (1.0-6.0); Hematocrit 43.9 % (35.0-42.0); Hemoglobin 13.8 g/dL (11.7-13.8); Immature Granulocyte Absolute 0.03 K/mm3 (0.00-0.00); Immature Granulocyte Percent A 0.7 % (0.0-0.0); Lymphocytes Absolute Auto 1.32 K/mm3 (1.10-4.50); Lymphocytes Percent Auto 28.8 % (18.0-42.0); Mean Corpuscular HGB Conc 31.4 g/dL (32.0-36.0); Mean Corpuscular Volume 89.2 fL (78.0-102.0); Mean Platelet Volume 9.4 fl (9.2-11.8); Monocytes Absolute Auto 0.34 K/mm3 (0.10-0.90); Monocytes Percent Auto 7.4 % (2.0-11.0); Neutrophils Absolute Auto 2.8 K/mm3 (1.7-7.2); Neutrophils Percent Auto 60.3 % (50.0-70.0); Platelet Count Result 243 K/mm3 (150-420); Red Blood Count 4.92 M/mm3 (4.20-5.40); Red Cell Distribution Width 14.4 % (11.6-14.4); White Blood Count 4.6 K/mm3 (4.8-10.8)
--- NOTE | 2023-09-16 09:08 | PC.NURSE ---
Will start thiamine bag once calcium infusion is finished.
--- NOTE | 2023-09-16 09:15 | ED.GENADULT ---
HPI - General Adult General Chief complaint: Headache Stated complaint: headache Time Seen by Provider: 09/16/23 08:29 History of Present Illness HPI narrative: 83YO WOMAN PRESENTS WITH ONGOING SENSATION OF FULLNESS IN HER HEAD. SHE PRESENTED WITH THIS A WEEK AGO. CT HEAD NORMAL. NO SIGNS OF STROKE. TRIED MIGRAINE COCKTAIL WHICH DID NOT REALLY HELP. HAD LOW CALCIUM, OTHERWISE NORMAL METABOLIC PANEL. RETURNS TODAY WITH SAME SYMPTOMS, APPEARS VERY DISTRESSED BY IT. REITERATES THAT IT IS NOT PAINFUL, NOT A HEADACHE, BUT INSTEAD A VERY DISCONCERTING FEELING OF PRESSURE. NO NUMBNESS, WEAKNESS, VISION LOSS, GAIT INSTABILITY, OR LANGUAGE DIFFICULTY. NO NEW MEDICATIONS. Related Data Home Medications Medication Instructions Recorded Confirmed levothyroxine 75 mcg tablet 75 mcg PO DAILY 04/25/21 09/16/23 metoprolol succinate 25 mg 25 mg PO DAILY 09/16/23 09/16/23 tablet,extended release 24 hr pravastatin 40 mg tablet 40 mg PO DAILY 09/16/23 09/16/23 Allergies Allergy/AdvReac Type Severity Reaction Status Date / Time No Known Allergies Allergy Verified 09/16/23 08:31 Review of Systems Review of Systems: All systems reviewed & are unremarkable except as noted in HPI and below Constitutional: Constitutional: Denies chills and Denies fever(s) ENT: Denies dizziness Cardiovascular: Cardiovascular: Denies chest pain Respiratory: Respiratory: Denies dyspnea Gastrointestinal: Gastrointestinal: Denies abdominal pain Musculoskeletal: Musculoskeletal: Denies back pain and Denies myalgias PMFSH Past Medical History Medical History Hypertension 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 Restless leg syndrome Surgical History Surgical History History of hysterectomy History of thyroid surgery Exam Const: General: healthy appearing and alert; No confusion Nutritional Appearance: well nourished Orientation/consciousness: patient oriented x3 HENMT: Head: normal to inspection, no contusions and no hematomas Eyes: Conjunctivae: conjunctivae normal Neck: Other: SUPPLE Resp: Effort & Inspection: normal respiratory effort and not labored Auscultation: clear to auscultation bilaterally Cardio: Rate: regular rate Rhythm: regular rhythm Heart sounds: no murmurs GI: Inspection: non-distended GI Palp: Yes Soft to palpation and No Tenderness to palpation present (GI) Skin: General skin exam: normal color, no jaundice and no pallor Neuro: General: patient oriented x3, moves all extremities, no meningeal signs, no focal motor deficits and CN's II-XI intact bilaterally Extrem: General: no clubbing, cyanosis or edema Course Vital Signs Vital signs: Vital Signs Temperature 36.4 C L 09/16/23 08:31 Pulse Rate 69 09/16/23 08:31 Respiratory Rate 18 09/16/23 08:31 Blood Pressure 177/99 H 09/16/23 08:31 Pulse Oximetry 99 09/16/23 08:31 Oxygen Delivery Room Air 09/16/23 08:31 Temperature 36.4 C L 09/16/23 08:31 Pulse Rate 69 09/16/23 08:31 Respiratory Rate 18 09/16/23 08:31 Blood Pressure 177/99 H 09/16/23 08:31 Pulse Oximetry 99 09/16/23 08:31 Oxygen Delivery Room Air 09/16/23 08:31 Medical Decision Making MDM Narrative Medical decision making narrative: SENSATION OF FULLNESS WITHOUT PAIN OR NEUROLOGIC DEFICIT DDX LIKELY METABOLIC DERANGEMENT, ANXIETY. CONSIDER NUTRITIONAL DEFICIENCY. NO EVIDENCE OF CEREBROVASCULAR ACCIDENT. NO SIGN OF TRAUMA. CONSIDER ADVERSE EFFECT OF HOME STATIN OR LEVOTHYROXINE. ONLY ON 25 METOPROLOL. NO OTHER MEDS SO NOT POLYPHARMACY. Vital Signs Vital Signs: Vital Signs Temperature 36.4 C L 09/16/23 08:31 Pulse Rate 69 09/16/23 08:31 Respiratory Rate 18 09/16/23 08:31 Blood Pressure 177/99 H 09/16/23 08:31 Pulse Oximetry 99 09/16/23 08:31 Oxygen Delivery Room Air
[2023-09-16 09:18] LABS: Magnesium 1.9 mg/dL (1.8-2.4)
[2023-09-16 09:25] LABS: Alanine Aminotransferase 16 U/L (14-59); Albumin Level 3.6 g/dL (3.4-5.0); Alkaline Phosphatase 57 U/L (46-116); Anion Gap 3 mmol/L (8-16); Aspartate Amino Transferase 18 U/L (15-37); Bilirubin,Total 0.6 mg/dL (0.00-1.00); Blood Urea Nitrogen 16 mg/dL (7-18); Calcium 6.9 mg/dL (8.5-10.1); Carbon Dioxide 33 mmol/L (21-32); Chloride 104 mmol/L (98-108); Estimated Glomerular Filt Rate 43; Glucose 93 mg/dL (70-99); Osmolality Calculated 291 mOsm/kg (285-295); Potassium 4.1 mmol/L (3.5-5.1); Sodium 140 mmol/L (136-145); Total Protein 7.1 g/dL (6.4-8.2)
[2023-09-16 09:26] LABS: Thyroid Stimulating Hormone Reflex 1.62 u/IU/mL (0.36-3.74)
[2023-09-16 09:38] LABS: Creatine Kinase 122 U/L (26-192)
--- NOTE | 2023-09-16 09:40 | PC.NURSE ---
RN spoke with pharmacy, they are making the thiamine bag will bring down in a few minutes. Calcium infusion almost done. will start second infusion once finished.
[2023-09-16] MEDS: THIAMINE HCL INJ 100 MG, FOLIC ACID 1 MG, MULTIVITAMINS-12 INJ 10 ML, MAGNESIUM SULFATE... 500 MG IV CONT (10:07)
== END 2023-09-16 12:08 | disposition home or self-care (01) ==
PROVIDERS: Emergency Provider Emergency Medicine; PCP Family Medicine
DX: E83.51 Hypocalcemia (principal); R51.9 Headache, unspecified; M62.830 Muscle spasm of back; I10 Essential (primary) hypertension; E03.9 Hypothyroidism, unspecified
CPT/HCPCS: 36415; 80053; 82550; 83735; 84443; 85025; 96365; 96366; 96367; 96375; 99284; J0613; J2060; J2360; J3411; J3475; J7030; J7121

== ENCOUNTER 2024-02-19 10:57 | Outpatient (CLI) | payer MEDICARE, SELFPAY ==
--- NOTE | ~2024-02-19 | XR_ITS ---
XR femur LT min 2V DATE: 02/19/2024 11:22 INDICATION: Mid femur pain TECHNIQUE: AP and lateral views of left femur COMPARISON: None FINDINGS: No fracture or dislocation, periosteal reaction or bone destruction of the left femur. Norm al alignment of the left hip and knee joints. IMPRESSION: Negative Reviewed, dictated and finalized at location B. IMPRESSION: Negative
--- NOTE | ~2024-02-19 | XR_ITS ---
XR hip LT min 2V DATE: 02/19/2024 11:21 INDICATION: Left leg pain, mid femur pain. TECHNIQUE: AP and lateral views of the left hip COMPARISON: None FINDINGS: No fracture or dislocation, avascular necrosis or bone destruction of the left hip is detec benjamin. Left hip joint space appears relatively well preserved. Normal alignment at the pubic symphysis and sacroiliac joints. IMPRESSION: No significant abnormality of left hip Reviewed, dictated and finalized at location B.
== END 2024-02-19 10:58 | disposition home or self-care (01) ==
LOC: CHSIMG 11:00
PROVIDERS: PCP Family Medicine; Visit Provider Family Medicine
DX: M79.605 Pain in left leg (principal)
CPT/HCPCS: 73502; 73552

== ENCOUNTER 2024-03-02 20:59 | Emergency (ER) | payer MEDICARE, SELFPAY ==
--- NOTE | ~2024-03-02 | CT_ITS ---
EXAMINATION: CTA brain carotid DATE: 03/02/2024 22:12 INDICATION: HEAD CONGESTION/DIZZY TECHNIQUE: Computed tomographic angiography (CTA) of the head was performed without and with 100 mL O mnipaque-350 intravenous contrast. CTA of the neck was performed with intravenous contrast. Automated exposure control and iterative reconstruction technique were employed. The dose-length product was 1 634.14 mGy-cm. Maximum intensity projection and volume rendered 3D-reconstructions were created by marvel mcdowell technologist on a separate workstation. COMPARISON: CT brain 09/09/2023. FINDINGS: CT BRAIN: Moderate motion artifact. No acute large vessel infarct, intracranial hemorrhage, or hydrocephalus. M oderate atrophy and chronic white matter change. Atherosclerotic intracranial calcification. Bilatera l lens replacements. i Likely arachnoid cyst in the right middle cranial fossa. Mucosal thickening an d air-fluid levels in the sphenoid sinuses with surrounding sclerosis. CTA HEAD: No large vessel occlusion, aneurysm, high flow vascular malformation, nidus or extravasation. CTA NECK: Aortic arch and proximal great vessels: Normal arch anatomy. Mild arch calcification. Right common carotid, carotid bifurcation, and internal carotid artery: Mild calcification at the bif urcation.There is 0% stenosis of the proximal right internal carotid artery relative to normal distal artery lumen diameter (NASCET criteria). Left common carotid, carotid bifurcation, and internal carotid artery: Mild calcification at the bifu rcation.There is 0% stenosis of the proximal left internal carotid artery relative to normal distal a rtery lumen diameter (NASCET criteria). Vertebral arteries: No significant plaque or stenosis. Vertebral arteries co-dominant. Other findings: Cervical spondylosis. No severe central canal or neural foraminal narrowing. Scattere d tree-in-bud opacities in the right upper lobe. 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 Right upper lobe tree-in-bud opacities may represent atypical infection in the appropriate clinical c ontext. No large vessel intracranial occlusion, high-grade intracranial stenosis, or aneurysm. No carotid or vertebral artery occlusion, dissection, or significant stenosis. Reviewed, dictated and finalized at location K. 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 Right upper lobe tree-in-bud opacities may represent atypical infection in the appropriate clinical context. No large vessel intracranial occlusion, high-grade intracranial stenosis, or an eurysm. No carotid or vertebral artery occlusion, dissection, or significant stenosis.
[2024-03-02 21:03] VITALS: BP 185/81; PULSE 76; RESP 18; TEMP 36.2; O2SAT 100
--- NOTE | 2024-03-02 21:06 | ECG_ITS ---
[address] Test Date: 2024-03-02 Pat Name: Carolyn Pyle Department: Room: Gender: F Baker Operator Automatic: ARVIND : 1940 Requested By: Trey Chowdhury Order Number: [id number] Reading MD: Sanjay Cruz M.D. Measurements Intervals [place] Rate: 81 P: 152 IA: 219 QRS: 33 QRSD: 65 T: -59 QT: 360 QTc: 418 Interpretive Statements ELECTRONIC ATRIAL PACEMAKER LOW QRS VOLTAGE IN PRECORDIAL LEADS [QRS DEFLECTION < 1.0 mV IN CHEST LEADS] NONSPECIFIC T-WAVE ABNORMALITY No previous ECG available for comparison Electronically Signed On 03-03-2024 14:12:45 CDT by Sanjay Cruz M.D.
[2024-03-02 21:23] LABS: Basophils Absolute Auto 0.03 K/mm3 (0.00-0.10); Basophils Percent Auto 0.4 % (0.0-1.0); Eosinophils Absolute Auto 0.09 K/mm3 (0.02-0.50); Eosinophils Percent Auto 1.3 % (1.0-6.0); Hematocrit 42.4 % (35.0-42.0); Hemoglobin 13.5 g/dL (11.7-13.8); Immature Granulocyte Absolute 0.05 K/mm3 (0.00-0.00); Immature Granulocyte Percent A 0.7 % (0.0-0.0); Lymphocytes Absolute Auto 1.92 K/mm3 (1.10-4.50); Lymphocytes Percent Auto 27.1 % (18.0-42.0); Mean Corpuscular HGB Conc 31.8 g/dL (32-36); Mean Corpuscular Hemoglobin 27.7 pg (27.0-31.0); Mean Corpuscular Volume 87.1 fL (78.0-102.0); Mean Platelet Volume 9.5 fl (9.2-11.8); Monocytes Absolute Auto 0.44 K/mm3 (0.10-0.90); Monocytes Percent Auto 6.2 % (2.0-11.0); Neutrophils Absolute Auto 4.56 K/mm3 (1.70-7.20); Neutrophils Percent Auto 64.3 % (50.0-70.0); Platelet Count Result 250 K/mm3 (150-420); Red Blood Count 4.87 M/mm3 (4.20-5.40); Red Cell Distribution Width 14.2 % (11.6-14.4); White Blood Count 7.1 K/mm3 (4.8-10.8)
[2024-03-02 21:41] LABS: Alanine Aminotransferase 15 U/L (14-59); Albumin Level 3.7 g/dL (3.4-5.0); Alkaline Phosphatase 63 U/L (46-116); Anion Gap 11 mmol/L (4-12); Aspartate Amino Transferase 20 U/L (15-37); Bilirubin,Total 0.5 mg/dL (0.00-1.00); Blood Urea Nitrogen 19 mg/dL (7-18); Calcium 7.2 mg/dL (8.5-10.1); Carbon Dioxide 29 mmol/L (21-32); Chloride 102 mmol/L (98-108); Estimated CRCL calculation 22 ml/min; Estimated Glomerular Filt Rate 36; Glucose 121 mg/dL (70-99); Osmolality Calculated 297 mOsm/kg (285-295); Potassium 3.6 mmol/L (3.5-5.1); Sodium 142 mmol/L (136-145); Total Protein 7.2 g/dL (6.4-8.2); Troponin I 4.2 ng/L (0.00-60.4)
[2024-03-02 22:22] VITALS: BP 167/72; PULSE 71; RESP 18; TEMP 36.2; O2SAT 100
--- NOTE | 2024-03-02 22:26 | ED.DIZZY ---
HPI - Dizziness General Chief Complaint: Dizziness Stated Complaint: upper respiratory Time Seen by Provider: 03/02/24 21:04 Source: patient Mode of arrival: ambulatory Limitations: clinical condition History of Present Illness HPI Narrative: 83 year old female presents to the Emergency Department complaining of sudden onset of dizziness and posterior head and neck pain. Onset 10 minutes prior to arrival. Denies chest pain, shortness of breath. Patient is very anxious and poor historian. MD elicited complaint: dizziness Onset (ago): minute(s) (10) Timing: sudden onset Severity: severe Description: lightheadedness and difficulty walking History of similar symptoms: No Exacerbating factors: nothing Relieving factors: nothing Related Data Home Medications Medication Instructions Recorded Confirmed levothyroxine 75 mcg tablet 75 mcg PO DAILY 04/25/21 03/02/24 metoprolol succinate 25 mg 25 mg PO DAILY 09/16/23 03/02/24 tablet,extended release 24 hr pravastatin 40 mg tablet 40 mg PO DAILY 09/16/23 03/02/24 Allergies Allergy/AdvReac Type Severity Reaction Status Date / Time No Known Allergies Allergy Verified 03/02/24 21:09 Review of Systems Review of Systems: All systems reviewed & are unremarkable except as noted in HPI and below Constitutional: Constitutional: Reports as per HPI and Reports weakness Eyes: Eyes: Reports as per HPI ENT: Reports system reviewed and no additional complaints, except as documented Cardiovascular: Cardiovascular: Reports as per HPI and Denies chest pain Respiratory: Respiratory: Reports as per HPI and Denies dyspnea Gastrointestinal: Gastrointestinal: Reports as per HPI, Denies abdominal pain, Denies nausea and Denies vomiting Genitourinary: Genitourinary: Reports no additional female genitourinary complaints Musculoskeletal: Musculoskeletal: Reports no additional musculoskeletal complaints Integumentary/Breasts: Skin/Breast: Reports system reviewed and no additional complaints, except as docu Neurologic: Reports system reviewed and no additional complaints, except as documented, Reports dizziness, Reports headache(s) and Denies focal weakness Psychiatric: Psychiatric: Reports no additional psychiatric complaints Endocrine: Endocrine: Reports no additional endocrine complaints PMFSH Past Medical History Medical History Hypertension 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 Restless leg syndrome Surgical History Surgical History History of hysterectomy History of thyroid surgery Exam Const: General: healthy appearing Nutritional Appearance: well nourished Orientation/consciousness: patient oriented x3 Limitations: physical limitations (very anxious) HENMT: Head: normal to inspection Ears: TM's normal bilaterally Face/Nose/Sinus: Normal external nose present Face and sinus: normal facial exam Mouth: Yes Normal oral and palatal mucosa present Teeth and gingiva: dentition normal Throat: posterior oropharynx normal Eyes: Conjunctivae: conjunctivae normal Pupils: Equal, round and reactive pupils present EOM: EOMs intact bilaterally Direct Ophthalmoscopy: no photophobia Neck: Neck: normal visual inspection Other: tender to palpation posterior neck Chest: Chest palpation & inspection: normal inspection of the chest Resp: Effort & Inspection: normal respiratory effort Auscultation: clear to auscultation bilaterally Cardio: Rate: regular rate Rhythm: regular rhythm Heart sounds: no murmurs GI: Inspection: non-distended Back/Spine/Pelvis: Back: no CVA tenderness Skin: General skin exam: normal color Rashes: no rashes Wounds: no wounds Neuro: General: patient oriented x3, moves all extremities, no meningeal signs (neck tender to palpation), no focal motor deficits and CN's II-XI intact bilaterally Cranial
[2024-03-02] MEDS: MECLIZINE HCL 25 MG TABLET PO (23:03)
[2024-03-02] MEDS: KETOROLAC 30 MG/ML VIAL (*BKC) IV PUSH (23:05)
[2024-03-02] MEDS: MORPHINE SULFATE (*CRX) 2 MG/ML INJ IV PUSH (23:45)
[2024-03-03 00:04] VITALS: BP 173/67; PULSE 67; RESP 18; TEMP 36.2; O2SAT 99
[2024-03-03 00:08] VITALS: BP 155/74; PULSE 78; RESP 18; TEMP 36.4; O2SAT 98
== END 2024-03-03 00:08 | disposition home or self-care (01) ==
PROVIDERS: Emergency Provider Emergency Medicine; PCP Family Medicine
DX: J32.9 Chronic sinusitis, unspecified (principal); R51.9 Headache, unspecified; E83.51 Hypocalcemia; R42 Dizziness and giddiness; I10 Essential (primary) hypertension; E89.0 Postprocedural hypothyroidism; M88.9 Osteitis deformans of unspecified bone; G25.81 Restless legs syndrome
CPT/HCPCS: 36415; 70496; 70498; 80053; 84484; 85025; 93005; 96365; 96375; 99284; A9270; J0696; J1885; J2270; Q9967